=== PATIENT | male | born 1995 | race Caucasian/White ===

== ENCOUNTER 2019-06-10 12:08 | Emergency (ER) | payer OTHER ==
[~2019-06-10] VITALS: Ht 177.8 cm; Wt 72.6 kg
[2019-06-10] MEDS ORDERED: MUCINEX1200 MG PO (15:13)
== END 2019-06-10 16:07 | disposition home or self-care (01) ==
LOC: ER 12:08
DX: B34.9 Viral infection, unspecified (principal); J11.1 Influenza due to unidentified influenza virus with other respiratory manifestations

== ENCOUNTER → 2022-06-06 | Emergency (ER) | payer OTHER ==
[~2022-06-06] VITALS: Ht 177.8 cm; Wt 83.9 kg
[~2022-06-06] MED LIST: CLINDAMYCIN HC300 MG PO; INTESTINEX680 M1 PO; KETO10TA2 PO; MUCINEX1200 MG PO
== END | disposition home or self-care (01) ==
LOC: ER 09:06
DX: J03.90 Acute tonsillitis, unspecified (principal); Z20.822 Contact with and (suspected) exposure to COVID-19